=== PATIENT | female | born 1940 | race Caucasian/White ===

== ENCOUNTER 2016-10-25 16:21 | Inpatient (IN) ==
[2016-10-25] MEDS ORDERED: IOPAMIDOL 100 ML BOTTLE IJ ONE (16:22)
[2016-10-25] MEDS ORDERED: ONDANSETRON ODT 4 MG TABLET SL ONE (16:46)
[2016-10-25] MEDS ORDERED: LABETALOL 5 MG/ML ML IV ONE (17:27)
[2016-10-25] MEDS ORDERED: LABETALOL HCL 20 MG/4 ML SYRINGE IV ONE ×2 (17:34→17:51)
[2016-10-25 18:11] LABS: Basophils # (Auto) 0 K/mcL (0.0-0.3); Basophils % (Auto) 0.8 % (0.0-2.0); Eosinophils # (Auto) 0.1 K/mcL (0.0-0.7); Eosinophils % (Auto) 1.6 % (0.0-7.0); Granulocytes % (Auto) 63.1 % (38.0-78.0); Lymphocytes # (Auto) 1.3 K/mcL (1.5-4.8); Lymphocytes % (Auto) 25.1 % (15.5-49.0); Mean Cell Volume 90.9 fL (80.0-100.0); Mean Corpuscular HGB Conc 34.4 g/dL (31.0-36.0); Mean Corpuscular Hemoglobin 31.3 pg (26.0-34.0); Monocytes # (Auto) 0.5 K/mcL (0.1-0.9); Monocytes % (Auto) 9.4 % (1.0-12.0); Platelet Count 289 K/mcL (140-440); RBC 4.24 M/mcL (4.00-5.20); Red Cell Distribution Width 12.8 % (11.5-14.5)
[2016-10-25 18:34] LABS: ALT/SGPT 18 U/l (0-40); Albumin 4.7 gm/dL (3.2-5.2); Albumin/Globulin Ratio 1.5 (1.0-2.3); Alkaline Phosphatase 85 U/L (39-117); Blood Urea Nitrogen 17 mg/dl (8-23)
[2016-10-25] MEDS ORDERED: LISINOPRIL 20 MG TABLET PO ONE (18:49)
[2016-10-25] MEDS ORDERED: LISINOPRIL 10 MG TABLET ONE (19:03)
[2016-10-25] MEDS ORDERED: METOCLOPRAMIDE 10 MG/2 ML VIAL IV ONE (19:19)
[2016-10-25] MEDS ORDERED: hydrALAZINE 20 MG/ML VIAL IV ONE (19:19)
[2016-10-25] MEDS ORDERED: 0.9 % SODIUM CHLORIDE 1,000 ML IV ONE ×2 (19:19→20:33)
--- NOTE | 2016-10-25 20:09 | Emergency Department Note ---
Nausea/Vomiting/Diarrhea HPI - General Chief complaint: Nausea/Vomiting/Diarrhea Stated complaint: n/v Time Seen by Provider: 10/25/16 17:01 Source: patient Mode of arrival: ambulatory Limitations: no limitations - History of Present Illness HPI Narrative: 76-year-old female with no medical history comes in today for sudden onset of nausea. She thought she might be just hungry so she ate but then threw it up. She reports that she is normally normotensive in the 120 systolic at the doctor' s office but here blood pressure is 208/104. Denies sick exposure, eating different food, fever, chills, diarrhea, belly pain, pain anywhere, dysuria. - Related Data Home Medications Medication Instructions Recorded Confirmed No Known Home Meds [No Known Home 10/25/16 10/25/16 Meds] Allergies Allergy/AdvReac Type Severity Reaction Status Date / Time Penicillins Allergy Hives Verified 10/25/16 16:23 Review of Systems All systems ED: reviewed and negative except as stated. Past Medical History - Past Medical History Attestation: Yes: The following information was validated with the patient. Medical history: Reports: no medical history Surgical history ED: Reports: no surgical history - Social History smoking status: Never smoker Alcohol use: Reports: None Physical Exam No acute distress resting comfortably able to answer questions appropriately. Normocephalic atraumatic. Conjunctive are clear sclerae nonicteric. No nasal discharge or congestion. Oropharynx is pink and moist. Posterior pharynx is clear. Neck is supple without lymphadenopathy thyromegaly or carotid bruit. Heart is regular rate and rhythm no murmur appreciated. Lungs are clear to auscultation bilaterally without wheezes rales rhonchi or respiratory distress. Abdomen is soft nontender nondistended no peritoneal signs or guarding. +2 radial pulse. No pedal edema. No dysarthria ataxia or tremor. Face is symmetrical. No weakness noted, she is able to sit up for my exam without difficulty. alert oriented mentating normally. Euthymic - General Limitations: no limitations Course Vital Signs Temperature 98.1 F 10/25/16 16:21 Pulse Rate 95 H 10/25/16 16:21 Respiratory Rate 14 10/25/16 16:21 Blood Pressure 208/104 10/25/16 16:21 Pulse Oximetry (%) 98 10/25/16 16:21 Temperature 98.1 F 10/25/16 16:21 Pulse Rate 84 10/25/16 21:45 Respiratory Rate 14 10/25/16 16:21 Blood Pressure 132/72 10/25/16 21:45 Pulse Oximetry (%) 97 10/25/16 21:45 Nausea/Vomiting/Diarrhea - Lab Data Lab results reviewed: Yes I reviewed the patient's lab results. Result diagrams: 10/25/16 17:36 10/25/16 17:36 Lab Results 10/25/16 10/25/16 10/25/16 Range/Units 17:36 17:36 17:36 WBC 5.1 (4.5-11.0) K/mcL RBC 4.24 (4.00-5.20) M/mcL Hgb 13.3 (12.0-15.0) g/dL Hct 38.6 (36.0-48.0) % MCV 90.9 (80.0-100.0) fL MCH 31.3 (26.0-34.0) pg MCHC 34.4 (31.0-36.0) g/dL RDW 12.8 (11.5-14.5) % Plt Count 289 (140-440) K/mcL MPV 8.1 (7.4-10.4) fL Gran % 63.1 (38.0-78.0) % Lymph % (Auto) 25.1 (15.5-49.0) % [place] % (Auto) 9.4 (1.0-12.0) % Eos % (Auto) 1.6 (0.0-7.0) % Baso % (Auto) 0.8 (0.0-2.0) % Gran # 3.2 (1.8-8.0) K/mcL Lymph # 1.3 L (1.5-4.8) K/mcL [place] # 0.5 (0.1-0.9) K/mcL Eos # 0.1 (0.0-0.7) K/mcL Baso # 0 (0.0-0.3) K/mcL Sodium 128 L (133-145) mmol/L Potassium 3.9 (3.3-5.1) mmol/L Chloride 91 L (96-108) mmol/L Carbon Dioxide 25 (22-30) mmol/L Anion Gap 12.0 (8-16) BUN 17 (8-23) mg/dl Creatinine 0.8 (0.6-1.1) mg/dl GFR Calculation 72 Glucose 102 (70-105) mg/dL Calcium 10.1 (8.6-10.4) mg/dl Total Bilirubin 0.3 (0.0-1.0) mg/dL AST 25 (0-37) U/l ALT 18 (0-40) U/l Alkaline Phosphatase 85 (39-117) U/L Troponin T < 0.01 (0-0.03) ng/ml Total Protein 7.8 (5.9-8.4) gm/dL Albumin 4.7 (3.2-5.2) gm/dL Globulin 3.1 (2.2-3.7) gm/dL Albumin/Globulin Ratio 1.5 (1.0-2.3) Urinalysis [id number] dipstick showed no abnormality-specific gravity was within normal limits - Radiology Data Radiology results reviewed: Yes I reviewed the patient's radiology results. CT scan of the head without contrast shows no acute abnormality CT scan of the abdomen and pelvis was done due to her intractable nausea and vomiting-showed markedly distended stomach with thickened duodenal bulb and decompressed small bowel concerning for pyloric obstruction. haziness in the mesenteric fat Disposition Clinical Impression: Hypertensive urgency, Pyloric obstruction Summary: Initially worked up for possible gastroenteritis but then noted that her blood pressure was up. Treated nausea with Zofran and started labetalol for hypertensive urgency. The Zofran helped. Labetalol brought blood pressure down into the 170 systolic. So we tried lisinopril. However then she started having more nausea and vomiting again-she vomited up the lisinopril. So, tried Reglan and hydralazine. CT scan of the head was ordered which was negative. Laboratory also unrevealing After IV fluids she is finally able to urinate. Blood pressure came down to normal levels CT scan of the abdomen and pelvis with contrast was ordered secondary to the intractable nausea without pain. Showed markedly distended stomach with thickened duodenal bulb and relative decompression of the small bowel concerning for pyloric obstruction. Discussed case with Dr. Gilbert Orourke our surgeon operational intelligence officer who agreed to accept the patient-he recommended NG tube for decompression of the stomach and is planning on doing upper endoscopy in the morning. Emergency department transition orders are written to this affect Disposition: Xfer As Inpt ([facility]) Condition: Fair Referrals: Ant Punetes DO [Primary Care Provider] - Gilbert Orourke MD [Physician] -
[2016-10-25] MEDS ORDERED: ONDANSETRON 4 MG/2 ML VIAL IV PRN (22:03)
[2016-10-25] MEDS ORDERED: PROMETHAZINE 25 MG/ML VIAL IM PRN (22:03)
[2016-10-25] MEDS ORDERED: NALOXONE HCL 0.4 MG/ML VIAL IV PRN (22:03)
[2016-10-25] MEDS: 0.9 % SODIUM CHLORIDE 1,000 ML IV SCH (22:55)
--- NOTE | 2016-10-26 06:01 | XRay Report ---
CLINICAL INFORMATION: Esophagogastric tube placement TECHNIQUE: AP supine abdomen COMPARISON: CT scan dated 10/25/2016 FINDINGS: Esophagogastric tube in the stomach. There is gas within the colon. No dilated gas-filled small bowel. There is contrast material within the renal collecting systems and urinary bladder from previous CT scan IMPRESSION: Esophagogastric tube within the stomach. Interpreted and Authenticated by: Pito Reis 10/26/16
--- NOTE | 2016-10-26 06:23 | Cat Scan Report ---
CLINICAL INFORMATION: Severe nausea and vomiting. Hypertension. COMPARISON: None. TECHNIQUE: Axial images were obtained through the abdomen and pelvis. Sagittally and coronally reformatted images. 70 mL contrast material injected intravenously. Oral contrast material was not given FINDINGS: Markedly distended and fluid-filled stomach. There is thickening of the proximal duodenal wall. Findings may be due to peptic disease. No perforated ulcer. No pneumoperitoneum. The small bowel is fluid-filled but not significantly distended. There is gas and fecal material within the colon. No focal colonic abnormality. No diverticulitis or no detectable mass. No appendicitis. There is diffuse edema of the mesenteric fat. Findings may be due to gastroenteritis. Sclerosing mesenteritis is possible although this is typically a more focal process. There is no intra-abdominal abscess. No free intraperitoneal fluid. No pneumatosis. No biliary or portal venous gas. No localized bowel wall thickening. No evidence for ischemic bowel. There is dense calcification at the origin of the superior mesenteric artery but there is no significant stenosis. Celiac trunk appears normal. Normal enhancement of superior mesenteric vein, portal vein. Subcutaneous fat appears normal. If the mesenteric edema was secondary to hypoalbuminemia, abnormality of the subcutaneous fat would be expected. Lung bases are negative. No parenchymal mass or infiltrate. No pleural fluid. No pericardial fluid. Negative liver. No focal intrahepatic abnormality. Liver contour is smooth. No evidence for cirrhosis. No ascites. Gallbladder is present. No calcified gallstones. Negative pancreas. No pancreatic mass. No peripancreatic abnormality. No pseudocyst. No definite evidence for pancreatitis. Negative spleen. Normal enhancement splenic and portal veins. Negative adrenal glands. Negative kidneys. No solid or cystic mass. No hydronephrosis. Uterus is retroflexed. No adnexal mass. Severe degenerative disc disease at L4-L5 and L5-S1. There is anteverted disease in the hips, left worse than right. There is periarticular soft tissue abnormality involving the abductor muscles on the left. Clinical correlation for symptoms of septic joint recommended. Findings may be related to joint effusion and degenerative change. Clinically indicated MRI scan may be helpful for further evaluation. Examination was initially interpreted by [facility]. No discrepancy. IMPRESSION: 1. Distended fluid-filled stomach and thickened duodenal wall. Findings may be due to peptic disease. 2. Fluid-filled small bowel without significant dilatation. No evidence for mechanical small bowel obstruction. 3. Diffuse mesenteric edema. No focal abscess or other focal intra-abdominal process. Interpreted and Authenticated by: Pito Reis 10/26/16
[2016-10-26] MEDS: PANTOPRAZOLE 40 MG VIAL IV SCH ×2 (08:04→17:58)
[2016-10-26] MEDS: 0.9 % SODIUM CHLORIDE 1,000 ML IV SCH ×2 (08:49→18:46)
[2016-10-26] MEDS ORDERED: PROMETHAZINE 25 MG/ML VIAL IV PRN (10:41)
--- NOTE | 2016-10-26 10:48 | General Surg History&Physical ---
History of Present Illness Patient information: Note initiated : 10/26/16 at 10:44 am Service Date, if different from initiated Date: [] Patient: Jinny Goode 76 y/o F admitted on 10/25/16 for N/V, Hypertensive Urgency, Pyloric Obstruction. Chief Complaint: [nausea and vomiting] HPI: Ms. Goode is a 76 year old female admitted for evaluation of recurrent vomiting of uncertain etiology. The patient had abrupt onset of a queasy feeling shortly after eating yesterday evening. This was followed by episodic vomiting when she was in transit to the emergency room. She had more vomiting while in the emergency room. She was also noted to be hypertensive with a blood pressure in the 200/110 range. The hypertension was treated and promptly returned to normal and has been normal since then. Because of the nausea nausea and vomiting she had a CT scan which showed a dilated stomach with some thickening of the duodenum; fluid-filled small bowel and mesenteric edema. An nasogastric tube was inserted and the patient has felt better. She has not had diarrhea. She has not had a similar episode. She denies bloating. She is admitted for treatment. There is no evidence of ischemia of the bowel and there is no evidence of obstruction. Review of Systems - Constitutional no chills, no fatigue, no headache(s), no night sweats, no weight loss - EENT Nose, mouth and throat: no abnormal hearing, no dizziness, no headache(s) - Cardiovascular no chest pain at rest, no claudication, no edema, no orthopnea, no palpatations , no syncope - Respiratory no cough, no dyspnea on exertion, no wheezing, no chest congestion - Gastrointestinal loose stools, nausea, vomiting, no abdominal pain, no bloating, no cramping, no dysphagia, no heartburn, no tenesmus - Genitourinary Genitourinary: no difficulty urinating, no urinary frequency, no urinary incontinence - Musculoskeletal no abnormal gait, no back pain, no joint swelling, no myalgias, no numbness, no tingling - Integumentary no new lesions, no pruritus, no rash - Neurological no abnormal hearing, no confusion, no disequilibrium, no headache(s), no lack of coordination, no memory loss, no syncope, no vertigo, no weakness - Psychiatric no anxiety, no confusion, no depression, no hallucinations, no panic attacks - Endocrine no cold intolerance, no excessive sweating, no palpitations - Hematologic/Lymphatic no easy bleeding, no easy bruising, no lymphadenopathy - Allergic/Immunologic no tongue swelling, no throat swelling, no uticaria, no wheezing, no lip swelling Past History Past medical history: no medical illness Past surgical history: no prior surgery Past family history: father age 86 with hypertension Mother age 66 due to pancreatic cancer she also had uterine cancer 2 siblings healthy Past social history: retired Never tobacco use never alcohol use Never drug use Medications and Allergies Home Medications Medication Instructions Recorded Confirmed Type No Known Home Meds [No Known Home 10/25/16 10/25/16 History Meds] Allergies Allergy/AdvReac Type Severity Reaction Status Date / Time Penicillins Allergy Hives Verified 10/25/16 16:23 Exam Temp Pulse Resp BP Pulse Ox 97.7 F 94 H 16 131/66 98 10/26/16 08:31 10/26/16 08:31 10/26/16 08:31 10/26/16 08:31 10/26/16 08:31 - General physical appearance well developed, well nourished, no distress - Eyes PERRL, normal ocular movement - ENT normal pinna, normal nares, normal mucosa, no hearing loss, no congestion - Head Head exam IM: Present: atraumatic, normocephalic - Neck no masses, no bruits, trachea midline, no lymphadectomy, no venous distension - Cardiovascular Cardiovascular exam IM: Present: normal rate and rhythm - Respiratory normal expansion, normal respiratory effort, clear to percussion, clear to auscultation - Abdomen Abdomen: Present: soft (normal abdominal exam;no tenderness;. Active bowel sounds), non tender (No masses), bowel sounds Hernia: Present: none - Integumentary Present: no rash, no growths, no abnormal pigmentation - Neurologic Present: normal coordination, normal sensation - Musculoskeletal Present: normal gait, normal posture - Psychiatric Present: oriented to time, oriented to person, oriented to place, speech is normal, memory intact Assessment and Plan (1) Acute distention of stomach nasogastric tube decompression IV pantoprazole IV Reglan Follow-up x-rays in the morning Status: Acute (2) Adynamic ileus follow-up abdominal x-rays in the morning Status: Acute (3) Hypertensive urgency presently asymptomatic and normotensive Status: Acute
[2016-10-26] MEDS: METOCLOPRAMIDE 10 MG/2 ML VIAL IV SCH ×2 (13:10→17:58)
[2016-10-27] MEDS: METOCLOPRAMIDE 10 MG/2 ML VIAL IV SCH ×5 (00:42→23:31)
[2016-10-27] MEDS: 0.9 % SODIUM CHLORIDE 1,000 ML IV SCH ×3 (04:47→15:02)
[2016-10-27 07:59] LABS: ALT/SGPT 13 U/l (0-40); Albumin 3.6 gm/dL (3.2-5.2); Albumin/Globulin Ratio 1.5 (1.0-2.3); Alkaline Phosphatase 63 U/L (39-117); Bilirubin,Direct < 0.2 mg/dL (0.0-0.3); Blood Urea Nitrogen 8 mg/dl (8-23); Gamma Glutamyl Transpeptidase 9 U/L (5-36); Magnesium 1.6 mg/dL (1.6-2.5); Uric Acid 4.7 mg/dL (2.5-8.0)
[2016-10-27] MEDS: PANTOPRAZOLE 40 MG VIAL IV SCH ×2 (08:17→17:05)
--- NOTE | 2016-10-27 08:51 | XRay Report ---
CLINICAL INFORMATION: Follow-up gastric distention and pain TECHNIQUE: Supine and upright abdomen COMPARISON: Previous examination dated 10/25/2016 FINDINGS: Esophagogastric tube remains in the stomach. The tube is been pulled back slightly with its sidehole at the gastroesophageal junction. Bowel gas pattern remains unremarkable. No dilated gas-filled small bowel. No air-fluid levels. No pneumoperitoneum. No biliary or portal venous gas. No pneumatosis. IMPRESSION: Negative supine and upright abdomen Interpreted and Authenticated by: Pito Reis 10/27/16
--- NOTE | 2016-10-27 13:41 | General Surgery Progress Note ---
Subjective Patient reports: feels better, pain is less, flatus, no bowel movement, afebrile Narrative: Note initiated : 10/27/16 at 1:38 pm Service Date, if different from initiated Date: [] Patient: Jinny Goode 76 y/o F admitted on 10/25/16 for N/V, Hypertensive Urgency, Pyloric Obstruction. Chief Complaint: [patient is doing well. She has not had nausea. Her NG output is minimal She denies abdominal distention or abdominal pain. She has had a small amount of flatus but no bowel movement.her abdominal x-ray is unremarkable with normal gas pattern and no small bowel distention. She has colon gas. ] she has had some mild blood pressure elevation . She denies chest pain or shortness of breath.peak blood pressure was 178. Objective Temp Pulse Resp BP Pulse Ox 98.0 F 89 18 173/80 96 10/27/16 12:00 10/27/16 08:26 10/27/16 12:00 10/27/16 12:00 10/27/16 12:00 - Additional Data Intake & Output - Last 24 hours: Intake & Output 10/25/16 10/26/16 10/27/16 10/28/16 05:59 05:59 05:59 05:59 Intake Total 1000 / 2000 2985 / 2985 Output Total 300 / 300 400 / 400 450 / 450 Balance 700 / 1700 2585 / 2585 -450 / -450 Weight 123 lb 121 lb - General physical appearance no distress, no pain - Eyes PERRL - ENT no congestion - Neck no venous distension - Respiratory normal respiratory effort, clear to auscultation - Cardiovascular Cardiovascular exam: Present: normal rate and rhythm, RRR, +S1, +S2. Absent: JVD, systolic murmur - Abdomen soft, non tender, bowel sounds (normal active bowel sounds; no distention or tenderness; no left upper quadrant fullness or t) - Integumentary no rash, no growths, no abnormal pigmentation - Neurologic normal coordination, normal sensation - Musculoskeletal normal gait, normal posture - Psychiatric oriented to time, oriented to person, oriented to place, speech is normal, memory intact - Labs 10/25/16 17:36 10/27/16 05:25 Diabetes panel 10/27/16 Range/Units 05:25 Sodium 139 (133-145) mmol/L Potassium 3.9 (3.3-5.1) mmol/L Chloride 103 (96-108) mmol/L Carbon Dioxide 23 (22-30) mmol/L BUN 8 (8-23) mg/dl Creatinine 0.6 (0.6-1.1) mg/dl Glucose 91 (70-105) mg/dL Calcium 8.9 (8.6-10.4) mg/dl AST 19 (0-37) U/l ALT 13 (0-40) U/l Alkaline Phosphatase 63 (39-117) U/L Total Protein 6.0 (5.9-8.4) gm/dL Albumin 3.6 (3.2-5.2) gm/dL Triglycerides 56 (<150) mg/dl Calcium panel 10/27/16 Range/Units 05:25 Calcium 8.9 (8.6-10.4) mg/dl Phosphorus 1.9 L (2.7-4.5) mg/dL Albumin 3.6 (3.2-5.2) gm/dL Pituitary panel 10/27/16 Range/Units 05:25 Sodium 139 (133-145) mmol/L Potassium 3.9 (3.3-5.1) mmol/L Chloride 103 (96-108) mmol/L Carbon Dioxide 23 (22-30) mmol/L BUN 8 (8-23) mg/dl Creatinine 0.6 (0.6-1.1) mg/dl Glucose 91 (70-105) mg/dL Calcium 8.9 (8.6-10.4) mg/dl Adrenal panel 10/27/16 Range/Units 05:25 Sodium 139 (133-145) mmol/L Potassium 3.9 (3.3-5.1) mmol/L Chloride 103 (96-108) mmol/L Carbon Dioxide 23 (22-30) mmol/L BUN 8 (8-23) mg/dl Creatinine 0.6 (0.6-1.1) mg/dl Glucose 91 (70-105) mg/dL Calcium 8.9 (8.6-10.4) mg/dl Total Bilirubin 0.4 (0.0-1.0) mg/dL AST 19 (0-37) U/l ALT 13 (0-40) U/l Alkaline Phosphatase 63 (39-117) U/L Total Protein 6.0 (5.9-8.4) gm/dL Albumin 3.6 (3.2-5.2) gm/dL Assessment and Plan (1) Acute distention of stomach Status: Acute Assessment and plan: patient is clinically improved. Her nasogastric tube will be discontinued and she will be started on clear liquids. Current Visit: Yes (2) Adynamic ileus Status: Acute Current Visit: Yes (3) Hypertensive urgency Status: Acute Assessment and plan: her blood pressure is slowly rising. I'll give her a day with the nasogastric tube out before starting antihypertensives. Current Visit: Yes - Time Spent With Patient Total time spent is greater than 50% in coordination of care (as documented) at patient's floor/unit and/or counseling patient:
[2016-10-27] MEDS: amLODIPine 10 MG TABLET PO SCH (17:55)
[2016-10-28] MEDS: 0.9 % SODIUM CHLORIDE 1,000 ML IV SCH ×3 (00:40→12:07)
[2016-10-28] MEDS: METOCLOPRAMIDE 10 MG/2 ML VIAL IV SCH ×4 (05:26→23:38)
[2016-10-28] MEDS: PANTOPRAZOLE 40 MG VIAL IV SCH ×2 (07:56→17:28)
[2016-10-28] MEDS ORDERED: METOPROLOL SUCCINATE 25 MG TAB.XL.24H PO SCH (09:00)
[2016-10-28] MEDS: amLODIPine 10 MG TABLET PO SCH (09:37)
[2016-10-28] MEDS ORDERED: METOPROLOL SUCCINATE 25 MG TAB.XL.24H PO ONE (12:41)
--- NOTE | 2016-10-28 13:06 | General Surgery Progress Note ---
Subjective Patient reports: feels better, tolerating liquids well, flatus, no bowel movement, afebrile Narrative: Note initiated : 10/28/16 at 1:04 pm Service Date, if different from initiated Date: [] Patient: Jinny Goode 76 y/o F admitted on 10/25/16 for N/V, Hypertensive Urgency, Pyloric Obstruction. Chief Complaint: [patient is doing well. She has no complaints. she denies nausea. She has had flatus but no bowel movement She denies abdominal pain. Her blood pressure is still elevated, though she is only received 2 doses of amlodipine. She does not have any dizziness or headache. She still denies that she has ever had hypertension.] Objective Temp Pulse Resp BP Pulse Ox 99.3 F H 95 H 16 189/96 97 10/28/16 12:00 10/28/16 12:00 10/28/16 12:00 10/28/16 12:00 10/28/16 12:00 - Additional Data Intake & Output - Last 24 hours: Intake & Output 10/26/16 10/27/16 10/28/16 10/29/16 05:59 05:59 05:59 05:59 Intake Total 1000 / 2000 2985 / 2985 2443 / 2443 1960 / 1960 Output Total 300 / 300 400 / 400 4000 / 4000 700 / 700 Balance 700 / 1700 2585 / 2585 -1557 / -1557 1260 / 1260 Weight 123 lb 121 lb 119 lb 8 oz - General physical appearance no distress, no pain - Eyes PERRL - ENT no congestion - Neck no venous distension - Respiratory normal respiratory effort, clear to auscultation - Cardiovascular Cardiovascular exam: Present: normal rate and rhythm, RRR, +S1, +S2. Absent: JVD - Abdomen soft, non tender, bowel sounds (bdomen is nondistended and scaphoid. She has good active bowel sounds. There is no abdominal tenderness. There is no fullness over the stomach and the epigastrium and left upper quadrant.) - Integumentary no rash, no growths, no abnormal pigmentation - Neurologic normal coordination, normal sensation - Musculoskeletal normal gait, normal posture - Psychiatric oriented to time, oriented to person, oriented to place, speech is normal, memory intact - Labs 10/25/16 17:36 10/27/16 05:25 Assessment and Plan (1) Acute distention of stomach Status: Acute Assessment and plan: patient is clinically improved. Her diet will be advanced to full liquids tonight and regular diet in the morning. We'll check CBC and BMP probable discharge in the morning Current Visit: Yes (2) Adynamic ileus Status: Acute Current Visit: Yes (3) Hypertensive urgency Status: Acute Assessment and plan: blood pressure remains elevated in spite of amlodipine Add metoprolol 12.5 mg daily. Current Visit: Yes - Time Spent With Patient Total time spent is greater than 50% in coordination of care (as documented) at patient's floor/unit and/or counseling patient:
[2016-10-28] MEDS ORDERED: hydrALAZINE 20 MG/ML VIAL IV ONE (20:30)
[2016-10-28] MEDS ORDERED: hydrALAZINE 20 MG/ML VIAL ONE (20:47)
[2016-10-29] MEDS: METOCLOPRAMIDE 10 MG/2 ML VIAL IV SCH ×2 (05:31→11:45)
[2016-10-29 06:24] LABS: Basophils # (Auto) 0 K/mcL (0.0-0.3); Basophils % (Auto) 0.5 % (0.0-2.0); Eosinophils # (Auto) 0.1 K/mcL (0.0-0.7); Eosinophils % (Auto) 1.1 % (0.0-7.0); Granulocytes % (Auto) 64.7 % (38.0-78.0); Lymphocytes # (Auto) 1.6 K/mcL (1.5-4.8); Lymphocytes % (Auto) 24.2 % (15.5-49.0); Mean Corpuscular HGB Conc 33.7 g/dL (31.0-36.0); Monocytes # (Auto) 0.6 K/mcL (0.1-0.9); Monocytes % (Auto) 9.5 % (1.0-12.0); Platelet Count 264 K/mcL (140-440); RBC 4.15 M/mcL (4.00-5.20)
[2016-10-29 07:06] LABS: Blood Urea Nitrogen 8 mg/dl (8-23)
[2016-10-29] MEDS: PANTOPRAZOLE 40 MG VIAL IV SCH (07:45)
[2016-10-29] MEDS: amLODIPine 10 MG TABLET PO SCH (07:57)
[2016-10-29] MEDS ORDERED: METOPROLOL SUCCINATE 25 MG TAB.XL.24H PO SCH (09:00)
--- NOTE | 2016-10-29 10:38 | Cat Scan Report ---
CLINICAL INFORMATION: Nausea and vomiting COMPARISON: None. TECHNIQUE: Axial noncontrast-enhanced images through the brain. FINDINGS: No acute intracranial hemorrhage. No intra-axial hematoma. No focal attenuation abnormalities or localized mass effect. No midline shift. Brain volume is normal. No hydrocephalus. Brain stem and cerebellum are negative. No extra-axial, intracranial abnormality. No subdural or subarachnoid hemorrhage. Basilar cisterns are normal. Temporal bones are negative. No calvarial lesion. No fracture. No lytic lesion. IMPRESSION: Negative noncontrast enhanced brain CT scan Interpreted and Authenticated by: Pito Reis 10/25/16
--- NOTE | 2016-10-29 13:51 | Discharge Summary ---
Providers - Providers Patient information: Note initiated : 10/29/16 at 1:43 pm Service Date, if different from initiated Date: [] Patient: Jinny Goode 76 y/o F admitted on 10/25/16 for N/V, Hypertensive Urgency, Pyloric Obstruction. Chief Complaint: [] Date of admission: 10/25/16 Discharge date: 10/29/16 Attending physician: Kulwinder Orourke Hospitalization Hospital course: 76-year- female was admitted with acute onset of nausea and vomiting. The patient states that she had a queasy feelingon the day prior to admission and this was followed by multiple episodes of severe nausea and vomiting. This continued throughout the night and she lly came to the emergency room for evaluation. In the emergency room she had a benig exam but she was hypertensivewith systolics in the 200 range. She was treated with antihypertensives until her blood pressure started to stabilize. Because of the nausea and vomiting she had a CT scan done which showed that her stomach was severely dilated and there appeared to be some thickening of the duodenum as well as increased fluid in her smal bowel. Her colon was unremarkable. It was felt that she had gastric outlet obstructionand or ileus. She was treated with IV fluids and nasogastric decompression along with pantoprazole and Reglan. She responded to therapy and after 48 hours her nasogastric tube was discontinued and her diet was slowly advanced. She tolerateder diet well and is now tolerating a regular diet. The patient's blood pressure initially was normal however after about 36 hours it goes to the 180 range systolic. She was started on amlodipine and had metoprolol added because of mild tachycardia in the 90s to 100 range. This has been effective. She does not have a history of hypertension in the past so she is advised to follow up with her primary physician to make sure that her blood pressure treatment is adequate for the pressure control. On close questioning today the patient admits to take an ibuprofen on a daily basis fora long time. She was not endoscoped but has responded appropriately. It is felt that she probably should have endoscopy at a later date. She is advised to follow-up 4 weeks and I will perform an upper endoscopy here at [facility]. Discharge diagnosis: gastric outlet obstruction Secondary discharge diagnosis: uncontrolled hypertension adynamic ileus Degenerative joint disease Reason for admission: recurrent nausea and vomiting Procedures: none Pertinent studies/significant findings: CT of abdomen and pelvis Complications: none Exam Temp Pulse Resp BP Pulse Ox 98.7 F 83 13 141/72 95 10/29/16 11:45 10/29/16 11:45 10/29/16 11:45 10/29/16 11:45 10/29/16 11:45 - General physical appearance well developed, well nourished, no distress - Eyes PERRL, normal ocular movement - ENT normal pinna, normal nares, normal mucosa, no hearing loss, no congestion - Head Head exam IM: Present: atraumatic, normocephalic - Neck no masses, no bruits, trachea midline, no lymphadectomy, no venous distension - Cardiovascular Cardiovascular exam IM: Present: normal rate and rhythm - Respiratory normal expansion, normal respiratory effort, clear to percussion, clear to auscultation - Abdomen Abdomen: Present: soft, non tender, bowel sounds Hernia: Present: none - Integumentary Present: no rash, no growths, no abnormal pigmentation - Neurologic Present: normal coordination, normal sensation - Musculoskeletal Present: normal gait, normal posture - Psychiatric Present: oriented to time, oriented to person, oriented to place, speech is normal, memory intact Discharge Plan - Patient/Caregiver Discharge Instructions Activity: increase activity as tolerated Diet: Regular Diet Additional Instructions: follow-up in office in 4 weeks. We will schedule her for upper endoscopy when seen in 4 weeks. Follow-up with primary care provider within 1 week for blood pressure checks and to change medication if neede Prescriptions: amLODIPine [Norvasc] 10 mg PO DAILY #30 tablet Metoclopramide [Reglan] 10 mg PO BIDAC #30 tablet Metoprolol Tartrate [Lopressor] 12.5 mg PO BID #60 tablet Pantoprazole Sodium 40 mg PO DAILY #30 tablet. - Follow up Plan Follow up with: Kulwinder Orourke MD [Physician] - Ant Puentes DO [Primary Care Provider] - Disposition: Home, Self-Care Prognosis: Good Rehab Potential: Good I certify that the patient requires SNF services.: No Overall status at discharge: patient is back to baseline Pending Studies Resuscitation Status Full Code Diet Regular Diet Start SatOctober 29 Breakfast Amlodipine Besylate (Norvasc) 10 mg PO DAILY JONATHAN Last Admin: 10/29/16 07:57 Dose: 10 mg Admin: 10/28/16 09:37 Dose: 10 mg Admin: 10/27/16 17:55 Dose: 10 mg Metoclopramide HCl (Reglan) 10 mg IV Q6 [facility] Last Admin: 10/29/16 11:45 Dose: 10 mg Admin: 10/29/16 05:31 Dose: 10 mg Admin: 10/28/16 23:38 Dose: 10 mg Admin: 10/28/16 17:29 Dose: 10 mg Admin: 10/28/16 12:07 Dose: 10 mg Admin: 10/28/16 05:26 Dose: 10 mg Admin: 10/27/16 23:31 Dose: 10 mg Admin: 10/27/16 17:55 Dose: 10 mg Admin: 10/27/16 11:55 Dose: 10 mg Admin: 10/27/16 06:06 Dose: 10 mg Admin: 10/27/16 00:42 Dose: 10 mg Admin: 10/26/16 17:58 Dose: 10 mg Admin: 10/26/16 13:10 Dose: 10 mg Metoprolol Succinate (Toprol Xl) 12.5 mg PO DAILY [facility] Last Admin: 10/29/16 07:57 Dose: 12.5 mg Ondansetron HCl (Zofran) 4 mg IV Q4HP PRN PRN Reason: Nausea And Vomiting Last Admin: 10/26/16 10:59 Dose: 4 mg Pantoprazole Sodium (Protonix) 40 mg IV BIDAC [facility] Last Admin: 10/29/16 07:45 Dose: 40 mg Admin: 10/28/16 17:28 Dose: 40 mg Admin: 10/28/16 07:56 Dose: 40 mg Admin: 10/27/16 17:05 Dose: 40 mg Admin: 10/27/16 08:17 Dose: 40 mg Admin: 10/26/16 17:58 Dose: 40 mg Admin: 10/26/16 08:04 Dose: 40 mg Shift Summary 10/29/16 04:01 Shift Summary by Valerio Bee Addendum entered by Valerio Bee 10/29/16 04:45: denies headache this AM, bp 159/73 and HR 84 Original Note: up ad vernell, amb. gonzalez multiple times t/o day and night without incident, passing flatus, BMs yesterday, voiding large amounts of clear yellow urine so hat removed, IV SL, flushed and patent but beginning to get tender, receives reglan q6h, no PRNS given t/o night, did c/o slight headache at midnight but refused medication, SBP 170's after Toprol XL started at 1310 yesterday so hydralazine 10mg IV x1 given at HS, repeat BP 169/67 and at midnight 162/79, HR remains in the 90's, no nausea with [place] diet so advanced to a regular this AM, pt cooperative with eating very slowly so as not to upset her system per recommendation, possible d/c home today with f/u with PCP for further cardiac evaluation Initialized on 10/29/16 04:01 - END OF NOTE
== END 2016-10-29 15:45 | disposition home or self-care (01) | DRG 381 ==
LOC: ED 16:21 → MEDSUR 22:48
PROVIDERS: ADMIT Family Medicine Adult Medicine; ATTEND Family Medicine Adult Medicine